=== PATIENT | female | born 1980 ===

== ENCOUNTER 2020-07-23 12:30 | Inpatient (IN) | payer MEDICAID ==
[~2020-07-23] VITALS: Ht 165.1 cm; Wt 86.6 kg
[2020-07-23] MEDS ORDERED: PREN-96 PO (13:04)
[2020-07-23] MEDS ORDERED: hydrALAZINE HCL 20 MG/ML VL IV PRN ×2 (13:30→14:00)
[2020-07-23] MEDS ORDERED: LACTATED RINGER'S 1,000 ML IV SCH (13:45)
[2020-07-23] MEDS ORDERED: MAGNESIUM SULFATE 100 ML IV ONE (14:00)
[2020-07-23] MEDS ORDERED: MAGNESIUM SULFATE 40MG/ML 1,000 ML IV SCH (14:00)
[2020-07-23 14:18] LABS: Basophils # (auto) 0 10 ^3/uL (0-0.2); Eosinophils # (auto) 0 10 ^3/uL (0-0.8); Eosinophils % (auto) 0.4 % (0.0-7.0); Hemoglobin 11.1 g/dL (12.2-16.2); Monocytes # (auto) 0.5 10 ^3/uL (0-1.3); Red Blood Cells 4.49 10^6/uL (4.0-5.20); White Blood Cell 10.4 10^3/uL (4.4-10.8)
[2020-07-23 14:21] LABS: Basophils % (auto) 0.4 % (0.0-2.0); Hematocrit 33.7 % (36.0-46.0); Lymphocytes # (auto) 1.7 10 ^3/uL (0.4-5.4); Lymphocytes % (auto) 16.2 % (10.0-50.0); Mean Corpuscular Hemoglobin 24.6 pg (28.0-32.0); Mean Corpuscular Hgb Conc. 32.8 g/dL (32.0-36.0); Mean Corpuscular Volume 75.1 fL (80.0-100.0); Monocytes % (auto) 4.4 % (0.0-12.0); Neutrophils # (auto) 8.1 10 ^3/uL (1.6-8.6); Neutrophils % (auto) 78.6 % (37.0-80.0); Platelet Count (auto) 159 10^3/uL (140-450); Red Cell Distribution Width 18.5 % (11.8-14.3)
[2020-07-23] MEDS: ceFAZolin 1GM/50ML 50 ML IV SCH ×2 (14:21→22:18)
[2020-07-23] MEDS: LACTATED RINGER'S 1,000 ML IV SCH ×2 (14:23→16:59)
[2020-07-23 14:32] LABS: Urine Bacteria MOD /hpf (None Seen); Urine Blood Negative /uL (Negative); Urine Mucus FEW (None Seen); Urine Specific Gravity 1.013 (1.001-1.035); Urine WBC 13 /hpf (0 - 5)
[2020-07-23 14:32] LABS: INR 0.93 (0.9-1.15); Partial Thromboplastin Time 30.5 sec (23.0-31.2)
[2020-07-23 14:52] LABS: Albumin 2.5 g/dL (3.4-5.0); Calcium 8.9 mg/dL (8.5-10.1); Potassium 3.9 mmol/L (3.5-5.1); Uric Acid 4.7 mg/dL (2.6-6.0)
[2020-07-23 14:55] LABS: BUN/Creatinine Ratio 17.9; Bilirubin, Total 0.3 mg/dL (0.2-1.0); Total Protein 6.4 g/dL (6.4-8.2)
[2020-07-23 14:58] LABS: Amphetamine Screen, Urine NEGATIVE (NEGATIVE); Barbiturate Scree,Urine NEGATIVE (NEGATIVE); Benzodiazephine Screen, Urine NEGATIVE (NEGATIVE); Cannabinoid Screen, Urine NEGATIVE (NEGATIVE); Cocaine Screen, Urine NEGATIVE (NEGATIVE); Creatinine, Urine 85 mg/dL (30.0-125.0); Opiate Scree,Urine NEGATIVE (NEGATIVE); Phencyclidine Screen, Urine NEGATIVE (NEGATIVE)
[2020-07-23] MEDS ORDERED: DERMOPLAST 60ML BOTTLE TOP PRN (15:00)
[2020-07-23] MEDS ORDERED: PHISODERM TOP SOLN 240ML BTL TOP PRN (15:00)
[2020-07-23] MEDS ORDERED: BUTORPHANOL TARTRATE 2 MG/1 ML VIAL IV PRN ×2 (15:00)
[2020-07-23] MEDS ORDERED: PROMETHAZINE HCL 25 MG/ML 1ML IV PRN (15:00)
[2020-07-23] MEDS ORDERED: LIDOCAINE 2%HCL (LOCAL ANESTH.) INJ 20ML MDV IJ PRN (15:00)
[2020-07-23] MEDS ORDERED: WITCH HAZEL-GLYCERIN PAD TOP PRN (15:00)
[2020-07-23] MEDS ORDERED: ePHEDrine SULFATE 50 MG/ML AMP IV ONE (15:15)
[2020-07-23] MEDS ORDERED: fentaNYL CITRATE 100 MCG/2 ML VL EPI ONE (15:15)
[2020-07-23] MEDS ORDERED: ROPIVACAINE HCL 200 ML EPI SCH (15:15)
[2020-07-23] MEDS ORDERED: LACT. RINGERS/OXYTOCIN 20UNITS 500 ML IV PRN ×2 (15:15)
[2020-07-23] MEDS ORDERED: NALOXONE HCL 0.4 MG/ML VIAL IV PRN (15:15)
[2020-07-23] MEDS ORDERED: miSOPROStol 100 mcg TAB SL PRN (17:45)
[2020-07-23] MEDS ORDERED: miSOPROStol 100 mcg TAB PR PRN (17:45)
[2020-07-23] MEDS: LACT. RINGERS/OXYTOCIN 20UNITS 1,000 ML IV SCH (19:31)
[2020-07-23] MEDS: MAGNESIUM SULFATE 40MG/ML 1,000 ML IV SCH (22:22)
[2020-07-23] MEDS ORDERED: ONDANSETRON HCL 4 MG/2 ML VIAL IV PRN (22:45)
[2020-07-24] VITALS (10 sets, daily range): BP systolic 127–150; BP diastolic 71–85
[2020-07-24] MEDS: LACT. RINGERS/OXYTOCIN 20UNITS 1,000 ML IV SCH (00:01)
[2020-07-24] MEDS: IBUPROFEN 600 MG TAB PO PRN ×3 (03:48→17:12)
[2020-07-24] MEDS: MAGNESIUM SULFATE 40MG/ML 1,000 ML IV SCH (05:47)
[2020-07-24 06:06] LABS: RPR Non Reactive (Non Reactive); Rubella Antibodies, IgG 1.19 index (Immune >0.99)
[2020-07-24] MEDS: ceFAZolin 1GM/50ML 50 ML IV SCH (06:07)
[2020-07-24] MEDS: ACETAMINOPHEN 325 MG TAB PO PRN ×3 (07:48→19:42)
[2020-07-24] MEDS ORDERED: FERR-7 PO (10:15)
[2020-07-25] VITALS (7 sets, daily range): BP systolic 128–141; BP diastolic 67–89
[2020-07-25] MEDS ORDERED: TETANUS-DIPTH-ACEL PERTUSSIS 0.5ML SYR Tdap IM ONE (09:15)
[2020-07-25] MEDS: IBUPROFEN 600 MG TAB PO PRN ×2 (09:29→17:17)
[2020-07-25] MEDS: LABETALOL HCL 200 MG TAB PO SCH ×2 (11:28→22:19)
[2020-07-26] VITALS (8 sets, daily range): BP systolic 125–162; BP diastolic 70–89
[2020-07-26] MEDS: IBUPROFEN 600 MG TAB PO PRN ×2 (06:58→16:14)
[2020-07-26] MEDS ORDERED: LABETALOL HCL 200 MG TAB PO SCH ×2 (08:00)
[2020-07-26] MEDS: LABETALOL HCL 200 MG TAB PO SCH (20:27)
[2020-07-27] MEDS: IBUPROFEN 600 MG TAB PO PRN ×2 (00:31→07:54)
[2020-07-27 04:00] VITALS: BP 138/83
[2020-07-27 07:00] VITALS: BP 162/94
[2020-07-27 07:11] VITALS: BP 162/94
[2020-07-27] MEDS: LABETALOL HCL 200 MG TAB PO SCH (07:54)
[2020-07-27 09:00] VITALS: BP 155/85
[2020-07-27] MEDS ORDERED: LABE200T7 PO (09:48)
[2020-07-27 10:45] VITALS: BP 122/68
== END 2020-07-27 10:53 | disposition home or self-care (01) | DRG 560 ==
LOC: LDRP 12:30 → OBSVTOIN 13:50 → LDRP 15:27
PROVIDERS: ADMIT Specialist; ATTEND Specialist
PROC: 10E0XZZ Delivery of Products of Conception, External Approach (ICD-10-PCS; principal; 2020-07-23)
PROC: 3E0R3BZ Introduction of Anesthetic Agent into Spinal Canal, Percutaneous Approach (ICD-10-PCS; 2020-07-23)
PROC: 00HU33Z Insertion of Infusion Device into Spinal Canal, Percutaneous Approach (ICD-10-PCS; 2020-07-23)
DX: O42.92 Full-term premature rupture of membranes, unspecified as to length of time between rupture and onset of labor (principal); O13.4 Gestational [pregnancy-induced] hypertension without significant proteinuria, complicating childbirth; Z20.822 Contact with and (suspected) exposure to COVID-19; Z37.0 Single live birth; Z3A.38 38 weeks gestation of pregnancy; O14.94 Unspecified pre-eclampsia, complicating childbirth
CPT/HCPCS: 36415; 59025; 59409; 62282; 76805; 80053; 80307; 81001; 81002; 82570; 83735; 84112; 84156; 84550; 85025; 85610; 85730; 86592; 86703; 86762; 86850; 86900; 86901; 86920; 87340; 87426; 90715; 94760; 96360; 96361; 96365; 96366; 96372; 96374; 96375; G0378; J0690; J2405; J2590